=== PATIENT | male | born 1935 | race Two or more races ===

== ENCOUNTER 2020-12-01 23:05 | Inpatient (IN) | payer MEDICARE, OTHER ==
[~2020-12-01] VITALS: Ht 157.5 cm; Wt 538.9 kg
[2020-12-01] MEDS ORDERED: TEMAZEPAM 15 MG CAPSULE PO PRN (23:15)
[2020-12-01] MEDS ORDERED: ACETAMINOPHEN 325 MG TABLET PO PRN (23:15)
[2020-12-01] MEDS ORDERED: ONDANSETRON 4 MG/2 ML VIAL IV PRN (23:15)
[2020-12-01] MEDS ORDERED: HYDROCODONE/APAP 5-325MG TABLET PO PRN (23:15)
[2020-12-01] MEDS ORDERED: MAGNESIUM HYDROXIDE 30 ML LIQUID UDC PO PRN (23:15)
[2020-12-01 23:17] VITALS: BP 152/78
--- NOTE | 2020-12-01 23:35 | NUR ---
Patient arrived onto unit by direct admit from [facility]. Patient arrived awake and alert. Confused to specific date, he does know the year. Denies pain. Denies SOB. Pt not in any visible distress at this time. NIHSS on admission: 0 Dr. Foote to add orders. All belongings accounted for. Daughter Miri was contacted, confirmed that pt does not take any medications at home. He is indeed vaccinated for COVID but unsure of flu and pna vaccine. Miri [phone]
[2020-12-02 05:46] VITALS: BP 122/74
--- NOTE | 2020-12-02 06:00 | NUR ---
Patient awake, follows commands. Denies pain. VS WNL. RA. Independent with repositioning. Skin intact. NIHSS 0 overnight. No deficits noted. No acute events occurred during this shift.
[2020-12-02] MEDS: PANTOPRAZOLE SODIUM 40 MG TABLET.DR PO SCH (06:40)
[2020-12-02 06:46] LABS: HEMATOCRIT 39.3 % (36.7-47.1); MEAN CORPUSCULAR VOLUME 82.9 fL (73.0-96.2); PLATELET COUNT (AUTO) 238 K/uL (152-348)
[2020-12-02 07:17] LABS: BILIRUBIN,TOTAL 0.8 mg/dL (0.2-1.0); CREATININE 0.6 mg/dL (0.6-1.3); MAGNESIUM 1.8 mg/dL (1.8-2.4); PHOSPHOROUS 2.5 mg/dL (2.5-4.9); POTASSIUM 3.3 mmol/L (3.5-5.1)
[2020-12-02 07:48] LABS: THYROID STIMULATING HORMONE 1.152 mIU/mL (0.358-3.740)
--- NOTE | 2020-12-02 09:02 | NUR ---
Veneer Sander consultation received. This ELECTRONIC SCALE TESTER to follow-up with the patient.
[2020-12-02] MEDS: ASPIRIN EC 81 MG TABLET.DR PO SCH (09:35)
[2020-12-02] MEDS ORDERED: POTASSIUM CHLORIDE 20 MEQ TAB.PRT.SR PO ONE (10:00)
--- NOTE | 2020-12-02 10:44 | NUR ---
POTASSIUM LEVEL IS 3.1 MD AWARE WITH NEW REPLACEMENT ORDER AND NOTED.
[2020-12-02 11:52] VITALS: BP 108/70
--- NOTE | 2020-12-02 13:21 | NUR ---
PATIENTS GRAND DAUGHTER KASIA HERE INQUIRED ON WHICH MEDICATIONS HER GRAND FATHER TAKES BUT SHE STATED THAT HER GRAND FATHER USED TO TAKE MEDICATIONS BEFORE BUT HE HAS FOR A LONG TIME REFUSED ALL HIS MEDICATIONS PUT THEM AWAY AND HAS REFUSED TO EVER TAKE THEM.ASKED HER IF SHE KNEW THE NAMES STATED THEY WERE FOR BLOOD PRESSURE DIABETES AND CHOLESTEROL WILL GO TO THE PATIENTS HOME AND SEE IF HE CAN FIND ANY INFO AND WILL CALL US BACK.
--- NOTE | 2020-12-02 14:07 | NUR ---
NEW ORDERS NOTED FROM DR SAMAYOA AND CARRIED OUT
[2020-12-02 15:56] VITALS: BP 148/74
--- NOTE | 2020-12-02 18:00 | NUR ---
RIGHT AC HEPLOCK INTACT PATIENT SEEN BY THE PHYSICAL THERAPIST FOR AMBULATION WITH GOOD ENDURANCE DENIES PAIN OR DISCOMFORTS AT THIS TIME MADE COMFORTABLE WILL CONTINUE TO OBSERVE.
--- NOTE | 2020-12-02 20:00 | NUR ---
RECEIVED PATIENT IN ROOM WITH HIS DAUGHTER AND GRAND DAUGHTER AT THE BEDSIDE VISITING DENIES PAIN OR DISCOMFORTS AT THIS TIME ALERT AND AWARE BUT WITH LANGUAGE BARRIER ALL NEEDS ATTENDED CALL LIGHTS WITHIN EASY REACH UPPER AND LOWER EXTREMITIES WITHIN NORMAL LIMITS NO SLURRING OF SPEECH NO FACIAL DROOPING AT THIS TIME WILL CONTINUE TO OBSERVE.
[2020-12-02 20:09] VITALS: BP 119/60
[2020-12-02] MEDS: DOCUSATE SODIUM 100 MG CAPSULE PO SCH (20:28)
[2020-12-02] MEDS ORDERED: DOCUSATE SODIUM 250 MG CAPSULE PO SCH (21:00)
[2020-12-03 00:03] VITALS: BP 127/55
[2020-12-03 04:09] VITALS: BP 118/70
--- NOTE | 2020-12-03 06:00 | NUR ---
AWAKE ALERT HE IS SOMEWHAT FORGETFUL FORGETS TO CALL THE NURSE FOR HELP HE GETS OUT OF BED UNATTENDED ASSISTED ORDERED BED ALARM IS IN USE MADE COMFORTABLE WILL CONTINUE TO OBSERVE.
[2020-12-03 06:41] LABS: HEMATOCRIT 38.4 % (36.7-47.1); MEAN CORPUSCULAR HEMOGLOBIN 27.4 uug (23.8-33.4); MEAN CORPUSCULAR VOLUME 83.3 fL (73.0-96.2); PLATELET COUNT (AUTO) 248 K/uL (152-348)
[2020-12-03] MEDS: PANTOPRAZOLE SODIUM 40 MG TABLET.DR PO SCH (06:42)
[2020-12-03 06:58] LABS: CREATININE 0.7 mg/dL (0.6-1.3); MAGNESIUM 1.9 mg/dL (1.8-2.4); PHOSPHOROUS 2.6 mg/dL (2.5-4.9); POTASSIUM 3.6 mmol/L (3.5-5.1)
--- NOTE | 2020-12-03 08:00 | NUR ---
RECEIVED CHANGE OF SHIFT REPORT. PT IN BED RESTING, GREENLANDIC SPEAKING ONLY. PT A/OX3 FORGETFUL AT TIMES, PT ON TELE MONITOR NSR, PT ON ROOM AIR, NO SIGNS OF DISTRESS, NO REPORTS OF PAIN. PT AMBULATORY WITH WALKER. BED LOW AND LOCKED, CALL LIGHT WITHIN REACH, WILL CONTINUE TO MONITOR.
[2020-12-03] MEDS: ASPIRIN EC 81 MG TABLET.DR PO SCH (08:43)
[2020-12-03 12:00] VITALS: BP 118/72
--- NOTE | 2020-12-03 15:39 | NUR ---
Physical Therapy Assistant Instructor Consultation: Physical Therapy Assistant Instructor consultation requested for TIA. Patient is an 85 year old male who was admitted to [facility] as a direct admit from [facility]. This MANUFACTURING MAINTENANCE MECHANIC met with the patient bedside, and his granddaughter Caitlyn was also present in the room. Patient is predominantly Turkish-speaking. Patient is awake, alert, oriented x 3-4. Patient lives at home ([address] [place] [address]) with his daughter Miri, son-in-law, and granddaughter Caitlyn. Patient has been independent with ADL's, ambulatory. Patient has a hx of stroke, and has not been to a doctor for over 1 year. Patient had been previously prescribed medications for DM, HTN, and cholesterol, but patient stated he stopped taking them about 1 year ago because they made him feel sick. Per Caitlyn's report, patient goes out on walks, goes to the market, visits his sister. Patient does not drive, and typically walks to places. Caitlyn stated that on the day of the TIA, patient had just gotten home from an outing when the family noticed that patient was slouched to one side, had some slurred and incoherent speech, and present confused. Family called the paramedics to have patient transferred to the hospital. Patient stated he was feeling well today, did not report any discomfort or pain. Patient was engaged in conversation. This MANUFACTURING MAINTENANCE MECHANIC administered the PHQ-9 to assess patient's mood and behavior, and patient scored a 0. Patient did not report any changes in his mood or behavior, and Caitlyn also reported not noticing any recent changes in mood or behavior. This MANUFACTURING MAINTENANCE MECHANIC provided some education on the impact strokes and changes in medical condition can have on patient's mood, and provided them with Stroke Referrals: [facility] Warmline, [id number], along with a Caregiver Guide to Stroke. Discharge plans were discussed, and patient will be returning home with family once he is discharged from the hospital. Need for community resources were discussed, and patient and family stated not needing any resources at this time, however had questions about patient's Medi-kyara status. This MANUFACTURING MAINTENANCE MECHANIC to refer patient to [facility] patient business services representative. No further SS interventions needed at this time, however social and human services assistant will remain available, as needed.
--- NOTE | 2020-12-03 15:51 | NUR ---
This CRUDE OIL TREATER sent an email to Kellie Norton, Patient Finishing Room Operator, requesting for her to follow-up with the patient and/or granddaughter regarding their concerns pertaining to patient's Medi-kyara status.
[2020-12-03 16:00] VITALS: BP 118/65
[2020-12-03 20:10] VITALS: BP 124/67
[2020-12-03] MEDS: DOCUSATE SODIUM 100 MG CAPSULE PO SCH (20:24)
--- NOTE | 2020-12-03 22:35 | NUR ---
Received pt lying in bed, in no acute distress. Axox3-4, Japanese speaking, able to make needs known. Denies any pain/ discomfort. VSS. All due medications administered and tolerated well. Needs attended too. Safety measure maintained. Call light and personal items within reach. Will continue to monitor
[2020-12-04 00:05] VITALS: BP 116/56
[2020-12-04 04:08] VITALS: BP 111/60
[2020-12-04] MEDS: PANTOPRAZOLE SODIUM 40 MG TABLET.DR PO SCH (06:11)
[2020-12-04 06:23] LABS: HEMATOCRIT 40.1 % (36.7-47.1); MEAN CORPUSCULAR VOLUME 83.3 fL (73.0-96.2); PLATELET COUNT (AUTO) 237 K/uL (152-348)
[2020-12-04 06:46] LABS: CREATININE 0.6 mg/dL (0.6-1.3); MAGNESIUM 1.8 mg/dL (1.8-2.4); PHOSPHOROUS 2.9 mg/dL (2.5-4.9); POTASSIUM 3.7 mmol/L (3.5-5.1)
--- NOTE | 2020-12-04 08:00 | NUR ---
AWAKE ALERT SPEAKS BHUTANESE, ORIENTED X3, NO SS OF PAIN OR SOB, NO CP SR ON MONITOR. FOR MRI BRAIN WITHOUT CONTRAST
[2020-12-04] MEDS: ASPIRIN EC 81 MG TABLET.DR PO SCH (08:11)
--- NOTE | 2020-12-04 11:08 | NUR ---
TO [facility] FOR MRI BRAIN WITHOUT CONTRAST VIA AMBULANCE
[2020-12-04 11:11] VITALS: BP 113/66
[2020-12-04 15:32] VITALS: BP 104/83
[2020-12-04] MEDS: CLOPIDOGREL 75 MG TABLET PO SCH (18:08)
--- NOTE | 2020-12-04 19:15 | NUR ---
Patient report received. Patient is awake, alert and oriented x 4. No signs of distress at this time. Patient resting in bed. Skin is intact. Patient is on TELE monitor, sinus rhythm at this time. Comfortable on room air. No reports of shortness of breath. Patient is ambulatory. Denies pain. KAMLA midline, patent. Bed in low and locked position. Call light within reach.
[2020-12-04 20:28] VITALS: BP 126/67
[2020-12-04] MEDS: DOCUSATE SODIUM 100 MG CAPSULE PO SCH (20:45)
[2020-12-04] MEDS ORDERED: ATORVASTATIN 10 MG TABLET PO SCH (21:00)
[2020-12-05 00:08] VITALS: BP 119/63
[2020-12-05 04:24] VITALS: BP 141/66
--- NOTE | 2020-12-05 06:29 | NUR ---
Patient is alert and oriented x 4. Slept well through the night after being given Ambien. No reports or signs of pain at this time. Patient s resting comfortably. Calm and cooperative. Medications given as ordered. Bed is in low and locked position. Fall and safety educations completed. Call light within reach.
[2020-12-05] MEDS: PANTOPRAZOLE SODIUM 40 MG TABLET.DR PO SCH (06:40)
--- NOTE | 2020-12-05 08:00 | NUR ---
RECEIVED PT IN BED SITTING. PT IN BED RESTING, AZERI SPEAKING ONLY. PT A/OX3, PT ON TELE MONITOR NSR, PT ON ROOM AIR, NO SIGNS OF DISTRESS, PT REPORTED PAIN 5/10 ON HIS BACK, MEDICATED ORDERED. PT AMBULATORY WITH WALKER. BED LOW AND LOCKED, CALL LIGHT WITHIN REACH, WILL CONTINUE TO MONITOR.
[2020-12-05] MEDS: CLOPIDOGREL 75 MG TABLET PO SCH (09:10)
[2020-12-05] MEDS: ASPIRIN EC 81 MG TABLET.DR PO SCH (09:10)
[2020-12-05] MEDS ORDERED: GADOTERATE MEGLUMINE 5 MMOL/10 ML VIAL IV ONE (11:22)
[2020-12-05 12:00] VITALS: BP 105/64
[2020-12-05] MEDS ORDERED: ASPI-618 PO (13:43)
[2020-12-05] MEDS ORDERED: ATOR10TA PO (13:43)
[2020-12-05] MEDS ORDERED: PANT40TA2 PO (13:43)
[2020-12-05] MEDS ORDERED: CLOP75TA33 PO (13:43)
[2020-12-05 16:00] VITALS: BP 131/70
--- NOTE | 2020-12-05 18:45 | NUR ---
Discharged patient to home. AOx3. On room air. No signs of acute distress. Patient denied pain/ discomfort. Discharge instructions given and discharge documents signed. Belongings accounted for and belongings list signed. IV access removed. ID armband removed. Patient left unit with [facility] calles.
== END 2020-12-05 18:40 | disposition home health service (06) | DRG 65 ==
LOC: TELE3 23:05
PROVIDERS: ADMIT Student in an Organized Health Care Education/Training Program; ATTEND Student in an Organized Health Care Education/Training Program
DX: I63.9 Cerebral infarction, unspecified (principal); G93.40 Encephalopathy, unspecified; E11.9 Type 2 diabetes mellitus without complications; E87.6 Hypokalemia; I10 Essential (primary) hypertension; Z86.73 Personal history of transient ischemic attack (TIA), and cerebral infarction without residual deficits; Z91.19 Patient's noncompliance with other medical treatment and regimen; R29.700 NIHSS score 0
CPT/HCPCS: 36415; 70030-TC; 70553; 71045; 83735; 84100; 84443; 85025; 93307; 93880; 97161; A9575; G0378